=== PATIENT | female | born 1980 | race Two or more races ===

== ENCOUNTER → 2017-09-09 05:46 | Day surgery (SDC) | payer SELFPAY ==
[2017-09-06 11:01] LABS: HEMATOCRIT 38.8 % (36.0-48.0); HEMOGLOBIN 12.8 g/dL (12-16); MCH 29.2 pg (26.0-34.0); MCV 88.6 fL (80.0-100.0); MEAN PLATELET VOLUME 8.8 fL (7.4-10.4); RBC 4.38 10x6/uL (4.00-5.40); RDW 13.3 % (11.5-14.5); WBC 6.9 10x3/uL (4.8-10.8)
[~2017-09-09] VITALS: Ht 167.6 cm; Wt 72.1 kg
[~2017-09-09 05:46] MED LIST: HYDROCODON-ACE1 EAC7 PO
[2017-09-09 06:25] VITALS: BP 128/73; Ht 167.6 cm; Wt 72.1 kg
[2017-09-09 07:39] LABS: HCG URINE NEGATIVE (NEGATIVE)
== END | disposition home or self-care (01) ==
LOC: D.OPS 05:46 → D.PAN 07:30 → D.OPS 08:00 → D.PAN 08:00
PROVIDERS: Anesthesiology; Surgery
DX: K80.20 Calculus of gallbladder without cholecystitis without obstruction (principal); R10.11 Right upper quadrant pain; K21.9 Gastro-esophageal reflux disease without esophagitis; Z01.812 Encounter for preprocedural laboratory examination